=== PATIENT | female | born 1975 | race Two or more races ===

== ENCOUNTER 2018-07-09 07:53 | Outpatient (CLI) | payer OTHER | END 2018-07-09 08:05 | disposition home or self-care (01) | LOC: MAMO-SONO 07:53 | DX: Z12.31 Encounter for screening mammogram for malignant neoplasm of breast (principal); N60.11 Diffuse cystic mastopathy of right breast; N60.12 Diffuse cystic mastopathy of left breast ==

== ENCOUNTER 2019-03-09 13:45 | Outpatient (CLI) | payer OTHER | END 2019-03-09 14:01 | disposition home or self-care (01) | LOC: SONOGRAMA 13:45 | DX: N60.19 Diffuse cystic mastopathy of unspecified breast (principal) ==

== ENCOUNTER 2020-03-27 08:20 | Outpatient (CLI) | payer OTHER | END 2020-03-27 08:32 | disposition home or self-care (01) | LOC: MAMO-SONO 08:20 | PROVIDERS: ATTEND Specialist | DX: Z12.31 Encounter for screening mammogram for malignant neoplasm of breast (principal); Z87.898 Personal history of other specified conditions; N60.11 Diffuse cystic mastopathy of right breast; N60.12 Diffuse cystic mastopathy of left breast ==